=== PATIENT | female | born 1975 | race American Indian/Alaskan Native ===

== ENCOUNTER 2019-02-24 18:54 | Emergency (ER) | payer OTHER ==
[2019-02-24] MEDS ORDERED: NACL 0.9% 1000 ML 1,000 ML IV ONE (19:20)
[2019-02-24 19:39] LABS: Basophils % (Auto) 0.7 % (0.0-1.8); Eosinophils % (Auto) 0.2 % (0.0-4.3); Hematocrit 37.6 % (30.3-42.9); Lymphocytes # (Auto) 1.2 K/mm3 (1.2-5.4); Lymphocytes % (Auto) 18.1 % (13.4-35.0); Mean Corpuscular HGB Conc 32 % (30-34); Mean Corpuscular Volume 82 fl (79-97); Monocytes # (Auto) 0.4 K/mm3 (0.0-0.8); Monocytes % (Auto) 6.5 % (0.0-7.3); Platelet Count 254 K/mm3 (140-440); Red Blood Count 4.58 M/mm3 (3.65-5.03); Red Cell Distribution Width 16.7 % (13.2-15.2)
[2019-02-24 19:53] LABS: Alanine Aminotransferase 6 units/L (7-56); Albumin 4.1 g/dL (3.9-5); BUN/Creatinine Ratio 16; Blood Urea Nitrogen 11 mg/dL (7-17); Calcium 9.4 mg/dL (8.4-10.2); Hemolysis Index 1
--- NOTE | 2019-02-24 20:22 | Emergency Department Report ---
HPI - General Chief Complaint: Abdominal Pain Time Seen by Provider: 02/24/19 20:13 - HPI HPI: 43-year-old -German female presents to the emergency department with a complaint of constipation and some occasional abdominal discomfort. She says it has been about 3-4 days since she had a satisfactory bowel movement. When she tries to go to the bathroom now she will have some small amount of watery, loose stools come out but she knows that there is something larger and more solid that she cannot pass and this causes her discomfort. She has not taken anything for her symptoms including any [id number] stool softeners or laxatives or en emas. She has a past medical history of high cholesterol. No recent travel or sick contacts at home. She denies any fever, nausea, vomiting, dysuria, vaginal bleeding or discharge. ED Past Medical Hx - Past Medical History Previous Medical History?: Yes Additional medical history: high cholesterol - Surgical History Past Surgical History?: Yes Additional Surgical History: C/S - Social History Smoking Status: Never Smoker - Medications Home Medications: Home Medications Medication Instructions Recorded Confirmed Last Taken Type Docusate Sodium [Colace] 100 mg PO BID PRN #20 capsule 02/24/19 Unknown Rx Magnesium Citrate [Citrate of 300 ml PO NOW #1 bottle 02/24/19 Unknown Rx Magnesia] ED Review of Systems ROS: Stated complaint: STOMACH PAIN Other details as noted in HPI Comment: All other systems reviewed and negative Constitutional: denies: chills, fever Eyes: denies: eye pain, vision change ENT: denies: ear pain, throat pain Respiratory: denies: cough, shortness of breath Cardiovascular: denies: chest pain, palpitations Gastrointestinal: abdominal pain, constipation. denies: nausea, vomiting Genitourinary: denies: dysuria, discharge Musculoskeletal: denies: back pain, arthralgia Skin: denies: rash, lesions Neurological: denies: headache, weakness Physical Exam - Physical Exam Vital Signs: Vital Signs 02/24/19 19:17 Temperature 98.8 F Pulse Rate 80 Respiratory 18 Rate Blood Pressure 144/72 O2 Sat by Pulse 98 Oximetry Physical Exam: GENERAL: The patient is well-developed well-nourished. HEENT: Normocephalic. Atraumatic. Patient has moist mucous membranes. EYES: Extraocular motions are intact. NECK: Supple. Trachea is midline. CHEST/LUNGS: Clear to auscultation. There is no respiratory distress noted. HEART/CARDIOVASCULAR: Regular. There is no tachycardia. There is no obvious murmur. ABDOMEN: Abdomen is soft, nontender. Patient has normal bowel sounds. There is no abdominal distention. SKIN: Skin is warm and dry. NEURO: The patient is awake, alert, and oriented. The patient is cooperative. The patient has no focal neurologic deficits. The patient has normal speech. MUSCULOSKELETAL: There is no tenderness or deformity. There is no limitation range of motion. There is no evidence of acute injury. Morbidly obese habitus. ED Course Vital Signs 02/24/19 19:17 Temperature 98.8 F Pulse Rate 80 Respiratory 18 Rate Blood Pressure 144/72 O2 Sat by Pulse 98 Oximetry ED Medical Decision Making - Lab Data Result diagrams: 02/24/19 19:24 02/24/19 19:24 - Radiology Data Radiology results: image reviewed interpreted by me: Abdominal x-ray shows nonspecific nonobstructive bowel gas. - Medical Decision Making Patient presents with a three-day history of some constipation. She is on vacation and says she has been eating a large amount of cheese. She had this one time in the past. She had some abdominal pain earlier but has since resolved. She mostly complains of some pain when she attempts to defecate and she feels there is some stool at the edge of the colon/rectum that is difficult to get out. On examination she has no tenderness to palpation of the abdomen. Labs have been unremarkable. Abdominal x-ray shows nonspecific bowel gas. The patient requested and was given an enema and had a satisfactory bowel movement and is feeling improved. - Differential Diagnosis constipation, ileus, bowel structure Critical Care Time: No Critical care attestation.: If time is entered above; I have spent that time in minutes in the direct care of this critically ill patient, excluding procedure time. ED Disposition Clinical Impression: Increased stool volume Constipation Qualifiers: Constipation type: unspecified constipation type Qualified Code(s): K59.00 - Constipation, unspecified Disposition: - TO HOME OR SELFCARE Is pt being admited?: No Condition: Stable Instructions: Constipation (ED), High Fiber Diet (ED) Additional Instructions: Please follow up with a primary care physician. Return to the emergency Department with any worsening of your symptoms or any acute distress. Prescriptions: Magnesium Citrate [Citrate of Magnesia] 300 ml PO NOW #1 bottle Docusate Sodium [Colace] 100 mg PO BID PRN #20 capsule PRN Reason: Constipation Referrals: [facility] [Outside] - 2-3 Days Time of Disposition: 23:05
--- NOTE | 2019-02-24 21:39 | XRay Report ---
PROCEDURE: XR ABDOMEN 2V TECHNIQUE: Abdominal series, including supine and upright AP views. HISTORY: abd pain COMPARISONS: None . FINDINGS: Bowel gas pattern: Nonobstructive . Masses or calcifications: None . Bony structures: No significant abnormality . Pneumoperitoneum: None . Other: No significant findings . IMPRESSION: No acute abnormality. This document is electronically signed by Jesus Freedman MD., February 24 2019 09:37:18 PM ET
[2019-02-25 03:29] VITALS: BP 114/60
== END 2019-02-25 00:14 | disposition home or self-care (01) ==
LOC: ED 18:54
DX: K59.00 Constipation, unspecified (principal); E78.00 Pure hypercholesterolemia, unspecified
CPT/HCPCS: 36415; 74019; 80053; 83690; 84703; 85025